=== PATIENT | female | born 1970 | race Caucasian/White ===

== ENCOUNTER → 2018-04-24 14:41 | Outpatient (CLI) | payer BC, SELFPAY | PROVIDERS: PCP Family Medicine; Visit Provider Family Medicine | DX: G47.33 Obstructive sleep apnea (adult) (pediatric) (principal); I10 Essential (primary) hypertension; R40.0 Somnolence; R06.83 Snoring; R53.83 Other fatigue | CPT/HCPCS: 95806 ==

== ENCOUNTER → 2018-08-20 11:03 | Outpatient (CLI) | payer BC, SELFPAY ==
--- NOTE | 2018-08-20 11:07 | XR_ITS ---
XR abdomen min 2V HISTORY: ITS.REASON: CONSTIPATION ORDERING PHYSICIAN: MALINA Llanes PATIENT AGE: 47 years COMPARISON: None TECHNIQUE: Upright and supine views of the abdomen. FINDINGS: There is a mild amount of retained colonic feces in the colon nonspecific. No intestinal obstruction or free air. Mild dextroscoliosis of the lumbar spine. Pelvic phleboliths are present in the right aspect of the pelvis IMPRESSION: Unremarkable exam
[2018-08-25 10:28] LABS: H. pylori Breath Test Negative (Negative)
== END ==
PROVIDERS: PCP Family Medicine; Visit Provider Physician Assistant
DX: R10.84 Generalized abdominal pain (principal); K59.00 Constipation, unspecified
CPT/HCPCS: 74019; 83013

== ENCOUNTER → 2018-09-21 09:45 | Outpatient (POV) | payer BC, SELFPAY | PROVIDERS: Visit Provider Nurse Practitioner Acute Care | DX: Z00.00 Encounter for general adult medical examination without abnormal findings (principal) ==

== ENCOUNTER → 2018-09-29 09:42 | Outpatient (POV) | payer BC, SELFPAY | PROVIDERS: Visit Provider Dermatology | DX: Z00.00 Encounter for general adult medical examination without abnormal findings (principal) ==

== ENCOUNTER → 2019-02-26 15:15 | Outpatient (CLI) | payer BC, SELFPAY ==
--- NOTE | 2019-02-26 15:28 | XR_ITS ---
XR chest 2V HISTORY: ITS.REASON: CHEST PAIN ORDERING PHYSICIAN: Soren Williamson MD PATIENT AGE: 48 years COMPARISON: None FINDINGS: The cardiomediastinal silhouette and pulmonary vascularity are within normal limits. The lungs are clear without infiltrates, suspicious nodules, or pleural effusions. No acute bony abnormalities. IMPRESSION: Negative chest, no acute finding
== END ==
PROVIDERS: PCP Family Medicine; Visit Provider Family Medicine
DX: R07.9 Chest pain, unspecified (principal)
CPT/HCPCS: 71046; 93005

== ENCOUNTER → 2019-03-15 08:15 | Outpatient (CLI) | payer BC, SELFPAY | PROVIDERS: PCP Family Medicine; Visit Provider Family Medicine | DX: R07.89 Other chest pain (principal) | CPT/HCPCS: 93017 ==

== ENCOUNTER → 2019-09-24 15:19 | Outpatient (CLI) | payer BC, SELFPAY ==
--- NOTE | 2019-09-24 15:23 | XR_ITS ---
PROCEDURE: XR HIP RT 2-3V W/PELVIS CLINICAL INDICATION: RT HIP PAIN COMPARISON: No exams were available for comparison FINDINGS: No fracture or dislocation is evident. No significant degenerative change. No lytic or blastic change. Unremarkable soft tissues. IMPRESSION: No acute findings. Dictated by: Lloyd Jurado MD 09/24/2019 16:59 Electronically signed by Lloyd Jurado MD in [place] 09/24/2019 16:59
== END ==
PROVIDERS: PCP Family Medicine; Visit Provider Family Medicine
DX: M25.551 Pain in right hip (principal)
CPT/HCPCS: 73502

== ENCOUNTER → 2020-12-20 08:40 | Outpatient (CLI) | payer BC, SELFPAY ==
[2020-12-20 09:53] LABS: Intact Parathyroid Hormone 66.7 pg/mL (7.5-53.5)
[2020-12-20 09:57] LABS: Free T4 (Free Thyroxine) 1.28 ng/dl (0.78-2.19)
[2020-12-20 10:11] LABS: Thyroid Stimulating Hormone 2.26 uIU/mL (0.465-4.68)
--- NOTE | 2020-12-20 13:19 | US_ITS ---
PROCEDURE: US THYROID CLINICAL INDICATION: hx hypothyroid COMPARISON: No exams were available for comparison FINDINGS: Right lobe: 4.3 x 1.6 x 1.7 centimeters Left lobe: 4.2 x 1.3 x 1.6 centimeters Isthmus: 0.4 Additional findings: Centimeters both lobes of thyroid gland demonstrate heterogeneous thyroid tissue. There is a focal isoechoic lesion noted in the left lobe of thyroid gland measuring 0.8 x 0.6 centimeters, demonstrates well-defined margins. Nodule in the right lobe of the thyroid gland measures 0.6 x 0.5 centimeters, demonstrates hypoechogenicity. IMPRESSION: Heterogeneous thyroid gland. Bilateral thyroid nodules measuring up to 0.8 centimeters. Follow-up as clinically indicated. Dictated by: Abigail Barr 12/20/2020 15:39 Abigail Barr in [place] 12/20/2020 15:39
[2020-12-21 10:42] LABS: Thyroid Peroxidase Antibodies <9 IU/mL (0-34)
[2020-12-22 03:34] LABS: Calcium, Ionized 5.3 mg/dL (4.5-5.6)
[2020-12-22 07:36] LABS: Thyroid Stimulating Immunoglob <0.10 IU/L (0.00-0.55)
== END ==
PROVIDERS: PCP Family Medicine; Visit Provider Otolaryngology
DX: E03.9 Hypothyroidism, unspecified (principal)
CPT/HCPCS: 36415; 76536; 82330; 83970; 84439; 84443; 84445; 86376

== ENCOUNTER 2021-06-25 20:12 | Emergency (ER) | payer BC, SELFPAY ==
[2021-06-25 21:00] VITALS: BP 153/106; PULSE 77; RESP 18; TEMP 36.7; O2SAT 97; BMI 36.2
--- NOTE | 2021-06-25 21:27 | HMH.EDUTC ---
[facility] Disposition Clinical Impression: Viral syndrome, Exposure to COVID-19 virus Disposition: Home, Self-Care Condition on Discharge: Good Instructions: DI for COVID-19 (Suspected or Confirmed ), Preventing the Spread of Coronavirus Discharge Instructions Additional Instructions: Drink plenty of fluids. Take tylenol or ibuprofen for pain or fever. Take the medications as directed. Follow up with your regular doctor. GO TO THE ER FOR ANY WORSENING SYMPTOMS Quarantine until you know the results of your covid-19 test. If it is positive, the health department should call you and give you further instructions about your length of Quarantine and other things. Notify your school or workplace of your results and follow their instructions regarding return to work/school. Prescriptions: Benzonatate [Tessalon Perle 100mg Cap] 100 mg PO TIDP PRN #30 cap PRN Reason: Cough Transmission Status: Received by [facility] Ondansetron [Zofran 4mg ODT] 4 mg PO DAILYP PRN #12 tab PRN Reason: Nausea Transmission Status: Received by [facility] Referrals: Yosi Garcia MD [Primary Care Provider] - Time of Disposition: 21:34 Medical Decision Making - Medical Records Medical records reviewed: No: I reviewed the patient's medical records. - Ankur Inquiry Pt receiving controlled substance: No Vital Signs: 06/25/21 21:00 06/25/21 21:37 Temperature 98.1 F 98.1 F Temperature Source Oral Pulse Rate 77 Pulse Rate [Right Brachial] 77 Respiratory Rate 18 18 Blood Pressure 153/106 H Blood Pressure [Right Arm] 153/106 H Blood Pressure Mean [Right Arm] 121 Blood Pressure Source [Right Arm] Automatic Cuff Blood Pressure Position [Right Arm] Sitting 02 Sat by Pulse Oximetry 97 Oxygen Delivery Method Room Air Orders (Tests/Meds): ORDERS Category Date Time Status Covid-19 Nasal PCR ([facility]) Routine Lab 06/25/21 21:00 Received [facility] HPI - General Stated complaint: covid exposure Time Seen by Provider: 06/25/21 21:27 Mode of Arrival: Ambulatory Source of Information: Patient Limitations: No Limitations Description of Symptoms (Recalled from Triage Doc. by RN): PATIENT C/O BODY ACHES, FEVER, RUNNY NOSE AND COUGH. WAS EXPOSED TO COVID THROUGH LAST FRIDAY HEENT Symptoms (Recalled from RN notes): Yes Resp Symptoms (Recalled from RN notes): No Skin Symptoms (Recalled from RN notes): No MS Symptoms (Recalled from RN notes): No Functional Status (Recalled from RN notes): WNL - History of Present Illness Provider Complaint: She states that she has had body aches, sore throat, runny nose and she has felt very fatigued for the past 1 day. She has been exposed to covid-19 by her having it last week. She has not been vaccinated. She denies any cough or chest congestion or shortness of breath. - Related Data Home Medications Medication Instructions Recorded Confirmed levothyroxine 50 mcg tablet 50 mcg PO tab 12/11/20 12/25/20 Previous Rx's Medication Instructions Recorded Benzonatate [Tessalon Perle 100mg 100 mg PO TIDP PRN #30 cap 06/25/21 Cap] Ondansetron [Zofran 4mg ODT] 4 mg PO DAILYP PRN #12 tab 06/25/21 Allergies Allergy/AdvReac Type Severity Reaction Status Date / Time No Known Allergies Allergy Verified 12/25/20 15:08 - Worker's Comp Is this a Worker's Comp case?: No [facility] History - Hepatitis A Screen Drug use history?: No High risk sexual behaviors?: No History of sexually transmitted infection?: No Currently employed?: No Childcare worker?: No Do you have indoor plumbing?: Yes Do you have electricity?: Yes Attestation statement:: This patient has been screened for Hepatitis A risk factors. I have reviewed the patient's past medical history: Yes Medical History: Reports:: Hypertension, Lung Disease (sleep apnea) Denies:: Diabetes Mellitus Type 1, Diabetes Mellitus Type 2, Internal Pacemaker, Seizures Comment: morbid ob
[2021-06-25 21:37] VITALS: BP 153/106; PULSE 77; RESP 18; TEMP 36.7; O2SAT 97
== END 2021-06-25 21:41 | disposition home or self-care (01) ==
PROVIDERS: Emergency Provider Nurse Practitioner Family; PCP Family Medicine
DX: U07.1 COVID-19 (principal); B34.9 Viral infection, unspecified; I10 Essential (primary) hypertension
CPT/HCPCS: 99202; C9803; G0463; U0003; U0005

== ENCOUNTER 2024-11-16 09:39 | Outpatient (CLI) | payer BC, SELFPAY ==
--- NOTE | 2024-11-16 09:44 | XR_ITS ---
FINAL REPORT CLINICAL HISTORY: PAIN IN HEEL FINDINGS: LEFT CALCANEUS 2 views were obtained. There is no acute fracture or dislocation. There is mild plantar calcaneal spurring. There is no bony erosion. Subtalar joint is unremarkable. Soft tissues are unremarkable. IMPRESSION: Mild spurring without acute bony abnormality. Reviewed, Interpreted and Dictated by Dean Nava MD Transcribed by Anu Thomas Authenticated and [facility]
== END 2024-11-16 23:59 | disposition home or self-care (01) ==
LOC: RAD 09:40
PROVIDERS: PCP Family Medicine; Visit Provider Family Medicine
DX: M79.672 Pain in left foot (principal)
CPT/HCPCS: 73650

== ENCOUNTER 2025-01-21 10:58 | Outpatient (CLI) | payer BC, SELFPAY ==
[2025-01-21 16:57] LABS: Basophils # 0.1 K/mm3 (0-0.2); Basophils % 1.1 % (0.1-2.0); Eosinophils # 0.1 Kmm3 (0.0-0.4); Eosinophils % 2.1 % (0.1-12.0); Hematocrit 39.3 % (37.0-47.0); Hemoglobin 13.7 g/dL (12.2-16.2); Lymphocytes # 1.5 K/mm3 (0.7-4.5); Lymphocytes % 30.9 % (10-50); Mean Corpuscular HGB Conc 34.9 g/dL (31.8-35.4); Mean Corpuscular Hemoglobin 31.4 pg (27.0-31.2); Mean Corpuscular Volume 90.1 fl (81-99); Mean Platelet Volume 9.7 fl (7.4-10.4); Monocytes # 0.5 K/mm3 (0.1-1.0); Neutrophils # 2.6 K/mm3 (1.8-7.8); Neutrophils % 55.9 % (37.0-80.0); Nucleated Red Blood Cells # 0 10^3/uL; Nucleated Red Blood Cells % 0 %; Platelet Count 216 K/mm3 (142-424); Red Blood Count 4.36 M/mm3 (4.20-5.40); Red Cell Distribution Width 12.3 % (11.5-17.5); Red Cell Distribution Width-SD 40.3 fL; White Blood Count 4.7 K/mm3 (4.8-10.8)
[2025-01-21 17:53] LABS: Albumin Level 4.3 g/dl (3.5-5.0); Chloride 103 mmol/L (98-107); Sodium 137 mmol/L (136-145)
[2025-01-21 17:54] LABS: Potassium 4.1 mmoL/L (3.5-5.1)
[2025-01-21 17:56] LABS: Alanine Aminotransferase 16 U/L (12-78); Albumin/Globulin Ratio 2.2 (1.1-1.8); Anion Gap 10.1 mEq/L (5-15); Aspartate Amino Transferase 24 U/L (14-36); Bilirubin,Total 1.3 mg/dl (0.2-1.3); Blood Urea Nitrogen 18 mg/dl (7-17); Carbon Dioxide 28 mmol/L (22.0-30.0); Estimated Glomerular Filt Rate 87 ml/min (>60); GFR (African American) 105 ML/MIN (>60); Total Protein,Serum 6.3 g/dl (6.3-8.2)
[2025-01-21 17:57] LABS: Alkaline Phosphatase 62 U/L (38-126); Calcium 9.2 mg/dl (8.4-10.2); Chol/HDL Ratio 2.2 (1-3.5); Cholesterol 175 mg/dl (140-200); Glucose 86 mg/dl (74-100); HDL Cholesterol 78 mg/dl (40-60); Triglycerides 54 mg/dl (30-150); VLDL Cholesterol 11 mg/dL (0-40)
[2025-01-21 18:08] LABS: Direct LDL Cholesterol 70.31 mg/dL (100-129)
[2025-01-21 18:15] LABS: Free T4 (Free Thyroxine) 1.21 ng/dl (0.78-2.19)
[2025-01-21 18:28] LABS: Thyroid Stimulating Hormone 2.33 uIU/mL (0.465-4.68)
--- OUTSIDE RECORDS SUMMARY | 2025-01-24 11:01 | XMS_ITS ---
Author Organization Unknown Medications Medication Instructions Effective Dates (start - stop) Status levothyroxine sodium 0.05 MG Oral Tablet [id number]:00:00.000+00:0 0 - Completed levothyroxine sodium 0.05 MG Oral Tablet [id number]:00:00.000+00:0 0 - Completed levothyroxine sodium 0.05 MG Oral Tablet [id number]:00:00.000+00:0 0 - Completed levothyroxine sodium 0.05 MG Oral Tablet [id number]:00:00.000+00:0 0 - Completed Patient Care team information Name Category Status Period Participants - - Proposed period not known -
== END 2025-01-21 23:59 | disposition home or self-care (01) ==
LOC: LAB.DROPOF 01-24 10:59
PROVIDERS: PCP Internal Medicine; Visit Provider Internal Medicine
DX: Z00.00 Encounter for general adult medical examination without abnormal findings (principal); Z13.220 Encounter for screening for lipoid disorders; Z13.1 Encounter for screening for diabetes mellitus; Z13.29 Encounter for screening for other suspected endocrine disorder
CPT/HCPCS: 80053; 80061; 83036; 84439; 84443; 85025